=== PATIENT | male | born 1960 | race Hispanic/Latino ===

== ENCOUNTER 2018-09-15 10:49 | Emergency (ER) | payer MEDICAID ==
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
[2018-09-15 12:26] VITALS: BP 134/82; PULSE 70; RESP 18; TEMP 98.1
[2018-09-15 12:38] VITALS: O2SAT 96
--- NOTE | 2018-09-15 13:55 | RAD ---
Date of service: 09/15/2018 PROCEDURE: Left Wrist Radiographs. HISTORY: pain s.p fall, h.o fracture COMPARISON: None. TECHNIQUE: 3 views obtained. FINDINGS: BONES: There is an acute displaced fracture in the distal metaphysis of radius with 1 shaft with medial and posterior displacement and medial angulation. There is positive ulnar variance. 2 metallic screws are identified in the distal epiphysis of radius. No evidence for loosening or screw fracture. Incompletely imaged are postsurgical changes in the proximal radius and ulna, with irregular periosteal reaction and a probably nonunited fracture in the proximal ulna. JOINTS: Normal. No dislocation. SOFT TISSUES: Mild periarticular soft tissue swelling. OTHER FINDINGS: None. IMPRESSION: Acute displaced fracture in the distal metaphysis of radius with 1 shaft with medial and posterior displacement and medial angulation. Status post open reduction and internal fixation of fractures in the proximal radius and ulna with the presumable nonunited fracture in the proximal ulna with associated irregular periosteal reaction.
== END 2018-09-15 12:25 | disposition home or self-care (01) ==
LOC: C.ER 10:49
DX: S62.102G Fracture of unspecified carpal bone, left wrist, subsequent encounter for fracture with delayed healing (principal); Y09 Assault by unspecified means

== ENCOUNTER 2018-09-19 20:10 | Emergency (ER) | payer MEDICAID ==
[2018-09-19 20:39] VITALS: BMI 23.0
[2018-09-19 21:20] LABS: BASO % 0.4 % (0.0-2.0); EOS % 0.5 % (0.0-4.0); HEMOGLOBIN 11.8 g/dL (12.0-18.0); LYMPH # 1.6 K/uL (1.0-4.3); LYMPH % 19.6 % (20.0-40.0); MEAN CELL VOLUME 103.6 fL (80.0-94.0); MEAN CORPUSCULAR HEMOGLOBIN 34.6 pg (27.0-31.0); MEAN CORPUSCULAR HGB CONC 33.4 g/dL (33.0-37.0); MEAN PLATELET VOLUME 7.8 fL (7.2-11.7); MONO # 0.8 K/uL (0.0-0.8); MONO % 9.3 % (0.0-10.0); NEUT # 5.7 K/uL (1.8-7.0); NEUT % 70.2 % (50.0-75.0); RBC 3.39 Mil/uL (4.40-5.90); WHITE BLOOD COUNT 8.2 K/uL (4.8-10.8)
[2018-09-19 21:32] LABS: ALB/GLOB RATIO 2.2 (1.0-2.1); ALBUMIN 4.1 g/dL (3.5-5.0); ALT/SGPT 96 U/L (21-72); AST/SGOT 123 U/L (17-59); BLOOD UREA NITROGEN 27 mg/dL (9-20); CALCIUM 8.9 mg/dl (8.6-10.4); GFR NON-AFRICAN AMERICAN > 60
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
[2018-09-20] MEDS ORDERED: Lidocaine 2% Jelly (Uro-Jet) ONE (01:50)
[2018-09-20] MEDS ORDERED: Sodium Chloride 0.9% 1,000 ML IV ONE ×2 (01:58→02:09)
[2018-09-20 05:52] LABS: URINE BILIRUBIN NEGATIVE (NEGATIVE); URINE BLOOD NEGATIVE (NEGATIVE); URINE CLARITY Clear (Clear); URINE COLOR Yellow (YELLOW); URINE GLUCOSE (UA) NORMAL (Normal); URINE LEUKOCYTE ESTERASE NEG Leu/uL (Negative); URINE PROTEIN NEGATIVE (NEGATIVE); URINE UROBILINOGEN NORMAL mg/dL (0.2-1.0)
[2018-09-20 06:10] LABS: BARBITURATES, UR NEGATIVE (NEGATIVE); BENZODIAZEPINES, UR NEGATIVE (NEGATIVE); OPIATES, UR NEGATIVE (NEGATIVE); PHENCYCLIDINE, UR NEGATIVE (NEGATIVE)
[2018-09-20] MEDS ORDERED: Ketamine 50 mg/ml Inj (10 ml) IM STA (08:52)
[2018-09-20] MEDS ORDERED: Ketamine 50 mg/ml Inj (2 ml) ONE (09:15)
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
[2018-09-20] MEDS: Divalproex 250 mg DR Tab PO SCH (19:21)
[2018-09-20] MEDS ORDERED: Midazolam 2 MG/2 ML VIAL IM STA (19:43)
[2018-09-20] MEDS ORDERED: Midazolam 2 MG/2 ML VIAL ONE (19:49)
[2018-09-21] MEDS ORDERED: Divalproex 250 mg DR Tab PO ONE (08:40)
[2018-09-21] MEDS: Divalproex 250 mg DR Tab PO SCH (08:53)
--- NOTE | 2018-09-21 11:00 | CARD ---
APPROVED REPORT Date of service: 09/20/2018 EKG Measurement Heart [id number] <Conclusion> Normal sinus rhythm Incomplete right bundle branch block Cannot rule out Anterior infarct, age undetermined Abnormal ECG
--- NOTE | 2018-09-21 11:02 | RAD ---
HISTORY: transfer COMPARISON: None available. TECHNIQUE: Chest PA and lateral, 2 views FINDINGS: LUNGS: Hyperinflation may be seen in the setting of COPD. Biapical pleural thickening and upper lobe granulomatous changes. Please note that chest x-ray has limited sensitivity for the detection of pulmonary masses. PLEURA: No significant pleural effusion identified. No definite pneumothorax . CARDIOVASCULAR: The cardiomediastinal silhouette appears within normal limits of size. No atherosclerotic calcification present. OSSEOUS STRUCTURES: Degenerative changes. VISUALIZED UPPER ABDOMEN: Unremarkable. OTHER FINDINGS: None. IMPRESSION: Hyperinflation may be seen in the setting of COPD. Biapical pleural thickening and upper lobe granulomatous changes.
[2018-09-21 11:18] VITALS: RESP 18; O2SAT 98
[2018-09-21 13:51] VITALS: BP 125/71; PULSE 81; TEMP 98
== END 2018-09-21 14:05 | disposition short-term general hospital (02) ==
LOC: C.ER 20:10
DX: F99 Mental disorder, not otherwise specified (principal); F31.9 Bipolar disorder, unspecified
CPT/HCPCS: 71046; 80053; 80320; 80324; 80345; 80346; 80349; 80353; 80358; 80361; 81001; 82948; 83735; 83992; 84100; 85025; 93005; 96360; 96372; 99285; J1630; J2060; J2250; J3486; J7030